=== PATIENT | female | born 1950 | race Caucasian/White ===

== ENCOUNTER → 2016-12-21 | Day surgery (SDC) | payer MEDICARE ==
--- NOTE | 2016-12-20 08:02 | MH ---
cc: RAN MYERS M.D. DATE OF ADMISSION: 12/21/2016 CHIEF COMPLAINT Dysphagia, odynophagia. HISTORY This is a 66-year-old female who presented with complaints of sore throat and had evidence of a base of tongue lesion. She shows an ulcerative mass in the midline base of tongue to the area of the epiglottis and vallecula. She is to undergo laryngoscopy and biopsy. PAST MEDICAL HISTORY 1. LATEX ALLERGY. 2. Previous DVT. 3. Acid reflux. 4. Previous CVA. PHYSICAL EXAMINATION GENERAL: A well-developed, well-nourished female in no apparent distress. HEENT: Normocephalic, atraumatic. Extraocular motions intact. External ear canals clear. The deborah, oral mucosa and oropharynx show no lesion. There is a lesion at the base of tongue with an ulcerative mass anterior to the epiglottis. There was no evidence of airway obstruction. CHEST: Clear to auscultation. HEART: Regular rate. ABDOMEN: Soft. EXTREMITIES: No lesion. NEUROLOGIC EXAM: Nonfocal. ASSESSMENT This is a 66-year-old female with history of base of tongue lesion. PLAN She is to undergo microlaryngoscopy and biopsy. The risks and benefits were discussed with the patient. The risks include but are not limited to those of anesthesia, bleeding, unfavorable scarring, bleeding, hematoma, abscess, airway obstruction, hoarseness, voice change. The patient states she has and accepts the risks of the procedure. MD MILAN Bartholomew/CHUCK /7:44 AM /7:54 AM
[~2016-12-21] VITALS: Ht 157.5 cm; Wt 49.4 kg
[~2016-12-21] MED LIST: BRIM0.2S4 EACH EYE; FLOR250C PO; INSULIN HUMAN REGULAR 1,000 UNITS/10 ML VIAL SQ PRN; LACTATED RINGER'S 1000 ML IV SCH; LEVO.05 PO; METO25TA3 PO; METOPROLOL TARTRATE 25 MG TAB PO PRN; MIDO5TAB PO; ONDANSETRON HCL 4 MG/2 ML VIAL IV PUSH ONE; PANT40TA3 PO; PHENYLEPH/NS 1000 MCG/10 ML SYR IV ONE; PRED10 PO; PRED1SUS EACH EYE; PROPOFOL 200 MG/20 ML AMP IV ONE; RANI300T PO; SODIUM CHLORID 0.9% 500 ML IV SCH
[2016-12-21 07:22] VITALS: BP 96/67; PULSE 78; RESP 20; TEMP 98; O2SAT 98
[2016-12-21 07:24] LABS: AUTOMATED NEUTROPHIL # 6.1 TH/MM3 (1.8-7.7); BASOPHIL % 0.4 % (0.0-2.0); EOSINOPHIL % 0.1 % (0.0-4.0); HEMATOCRIT 32.6 % (35.0-46.0); HEMO FLAGS DIFF FINAL; LYMPH % 8.3 % (9.0-44.0); LYMPHOCYTE # 0.6 TH/MM3 (1.0-4.8); MEAN CELL VOLUME 90.6 FL (80.0-100.0); MEAN CORPUSCULAR HEMOGLOBIN 30.9 PG (27.0-34.0); MEAN CORPUSCULAR HGB CONC 34.1 % (32.0-36.0); MONO % 8.7 % (0.0-8.0); NEUT % 82.5 % (16.0-70.0); PLATELET COUNT 253 TH/MM3 (150-450); RED CELL DISTRIBUTION WIDTH 14.8 % (11.6-17.2); WHITE BLOOD COUNT 7.3 TH/MM3 (4.0-11.0)
--- NOTE | 2016-12-21 09:28 | MP ---
cc: RAN MYERS M.D. DATE OF SURGERY: 12/21/2016 INDICATIONS This is a 66-year-old female who presented with dysphagia and odynophagia. She had a base of tongue lesion. She is to undergo microlaryngoscopy and biopsy. PREOPERATIVE DIAGNOSIS Hoarseness, dysphagia, odynophagia, base of tongue lesion. POSTOPERATIVE DIAGNOSIS Hoarseness, dysphagia, odynophagia, base of tongue lesion. PROCEDURE Microlaryngoscopy with biopsy. SUMMARY The patient was brought to the operating room and placed in supine position, successfully placed under general anesthesia and prepared in the usual fashion for this procedure. The patient was examined with magnification with laryngoscope. The lesion was identified as a broad-based lesion more central, anterior to the epiglottis at the base of tongue. Biopsy was taken with minimal bleeding. She tolerated this well and was awakened and taken to Recovery in stable condition. MD MILAN Bartholomew/PEDRO /9:07 AM /9:16 AM
[2016-12-21 10:29] VITALS: BP 94/71; PULSE 88; RESP 18; TEMP 98.1; O2SAT 95
--- NOTE | 2016-12-21 18:38 | EKG ---
Date Performed: 12/21/2016 Time Performed: 06:43:59 PTAGE: 66 years EKG: Sinus rhythm MARKED LEFT AXIS DEVIATION LOW QRS VOLTAGE IN PRECORDIAL LEADS RIGHT BUNDLE BRANCH BLOCK ABNORMAL EC G NO PREVIOUS TRACING DOCTOR: Dragan Wright Interpretating Date/Time 12/21/2016 18:36:19
== END | disposition home or self-care (01) ==
LOC: HSDC 06:16
PROVIDERS: ATTEND Specialist
DX: K14.9 Disease of tongue, unspecified (principal); R13.10 Dysphagia, unspecified; R49.0 Dysphonia; J02.9 Acute pharyngitis, unspecified; I10 Essential (primary) hypertension; R94.31 Abnormal electrocardiogram [ECG] [EKG]; K21.9 Gastro-esophageal reflux disease without esophagitis; Z86.718 Personal history of other venous thrombosis and embolism; Z86.73 Personal history of transient ischemic attack (TIA), and cerebral infarction without residual deficits
CPT/HCPCS: 00320; 31536; 85025; 88305; 88341; 88342; 93005; J2370; J2405; J3010; J7120

== ENCOUNTER 2017-01-06 06:41 | Day surgery (SDC) | payer MEDICARE ==
[2017-01-06] VITALS (7 sets, daily range): BP systolic 78–103; BP diastolic 51–72; PULSE 69–81; RESP 14–20; TEMP 97.5–98.1; O2SAT 90–97
[~2017-01-06 06:41] MED LIST changes: -INSULIN HUMAN REGULAR 1,000 UNITS/10 ML VIAL SQ PRN; -LACTATED RINGER'S 1000 ML IV SCH; -METOPROLOL TARTRATE 25 MG TAB PO PRN; -ONDANSETRON HCL 4 MG/2 ML VIAL IV PUSH ONE; -PHENYLEPH/NS 1000 MCG/10 ML SYR IV ONE; -PRED1SUS EACH EYE; -PROPOFOL 200 MG/20 ML AMP IV ONE; -SODIUM CHLORID 0.9% 500 ML IV SCH
[2017-01-06] MEDS ORDERED: SODIUM CHLORIDE 0.9% 1000 ML IV SCH (07:15)
[2017-01-06] MEDS ORDERED: ceFAZolin 2 GM PREMIX 50 ML - gastrostomy and jejunostomy initial insertion IV SCH (07:15)
[2017-01-06 07:43] LABS: AUTOMATED NEUTROPHIL # 4.9 TH/MM3 (1.8-7.7); BASOPHIL % 0.3 % (0.0-2.0); EOSINOPHIL % 0.1 % (0.0-4.0); HEMATOCRIT 32.8 % (35.0-46.0); HEMO FLAGS DIFF FINAL; LYMPH % 17.4 % (9.0-44.0); LYMPHOCYTE # 1.2 TH/MM3 (1.0-4.8); MEAN CELL VOLUME 91.1 FL (80.0-100.0); MEAN CORPUSCULAR HEMOGLOBIN 30.4 PG (27.0-34.0); MEAN CORPUSCULAR HGB CONC 33.4 % (32.0-36.0); MONO % 12.8 % (0.0-8.0); NEUT % 69.4 % (16.0-70.0); PLATELET COUNT 269 TH/MM3 (150-450); RED CELL DISTRIBUTION WIDTH 14.9 % (11.6-17.2)
[2017-01-06 07:46] LABS: APTT (PATIENT) 30.6 SEC (24.3-30.1); INTERNATIONAL NORMALIZED RATIO 1.2 RATIO; PROTHROMBIN TIME - PATIENT 13.3 SEC (9.8-11.6)
[2017-01-06] MEDS ORDERED: ePHEDrine/NS 25 MG/5 ML SYR ONE (07:57)
[2017-01-06] MEDS ORDERED: fentaNYL CITRATE 250 MCG/5 ML AMP ONE (07:57)
[2017-01-06] MEDS ORDERED: MIDAZOLAM HCL 5 MG/5 ML VIAL ONE (07:57)
[2017-01-06] MEDS ORDERED: GLUCAGON 1 MG/ML VIAL ONE (07:58)
--- NOTE | 2017-01-06 08:53 | PD.RAD ---
Post Procedure Progress Note Pre Procedure Diagnosis: (1) Oral cancer Post Procedure Diagnosis: (1) Oral cancer Procedure Date: Jan 06, 2017 Supervising Radiologist: Dennys Sheehan JR Proceduralist/Assist: Chelsea Ramirez RT(R), Prateek Peacock RT(R) Anesthesia: Conscious Sedation Plan of Activity Patient to Unit: ROPU Patient Condition: Good See PACS Report for procedural detail/treatment Feeding Tube Gastrostomy Placement Uzbek: 18 Findings: Placed G tube without difficulty. In good position Plan T fasteners will fall off on their own in approx 3 weeks Jr. Aguila,Dennys Leach MD Jan 06, 2017 08:53
[2017-01-06] MEDS ORDERED: IOHEXOL 350 MG/ML 50 ML BTL (for RAD DIAG) G-TUBE ONE (08:57)
--- NOTE | 2017-01-06 11:35 | RADRPT ---
EXAM DATE/TIME: 01/06/2017 08:16 [facility] COMPARISON: No previous studies available for comparison. INDICATIONS : Patient with tongue cancer in need of G-tube placement. MEDICAL HISTORY : Heart disease COPD Liver disease Arthritis PVD GERD Crohn's disease CVA 07/29 Hx Hypothyroidism SURGICAL HISTORY : Laparotomy D&C Tubal ligation Cataract surgery Appendectomy Laryngoscopy [facility] biopsy ENCOUNTER: Initial ACUITY: 1 month PAIN SCORE: 0/10 FLUORO TIME: 3.6 minutes SEDATION TIME: 30 minutes CONTRAST: 10 cc Omnipaque (iohexol) 350 MEDICATION(S): 1.) 1.5 mcg midazolam (Versed) IV 2.) 75 mg Fentanyl (Sublimaze) IV DEVICE(S): 1.) 18 Fr gastrostomy tube PROCEDURE : 1. Limited abdominal ultrasound. 2. Fluoroscopically guided gastrostomy tube placement. 3. Conscious sedation with continuous EKG and oximetry monitoring. The risks, benefits and alternatives to the procedure were explained and verbal and written consent w as obtained. The site was prepped in sterile fashion. Full sterile technique was used, including ca p, mask, sterile gloves and gown and a large sterile sheet. Hand hygiene and 2% chlorhexidine and/or betadine/alcohol prep was utilized per protocol for cutaneous antisepsis. The skin and subcutaneous tissues were infiltrated with local anesthetic solution. Ultrasound was used to vivian the position of the liver. The stomach was insufflated with room air. Th ree percutaneous fasteners were placed to secure the anterior gastric wall. A small incision was made between the fasteners. The stomach was accessed with an 18 gauge needle. A n 0.035 wire was advanced into the small bowel. The tract was dilated. The gastrostomy tube was int roduced through a peel-away sheath. The position was confirmed with an injection of contrast. Conscious sedation was performed with the prescribed dosages and duration as above. The patient marques ated the procedure well and there were no complications. EKG and oximetry remained stable throughout the procedure. The patient was sent to post anesthesia recovery in stable condition. CONCLUSION: Uncomplicated gastrostomy tube placement as above. Dennys Sheehan Jr., MD on January 06, 2017 at 11:33 Board Certified Radiologist. This report was verified electronically.
== END 2017-01-06 11:15 | disposition home or self-care (01) ==
LOC: HROP 06:41 → HRIP 06:44 → HROP 11:15
PROVIDERS: ATTEND Specialist
DX: C02.9 Malignant neoplasm of tongue, unspecified (principal); R13.10 Dysphagia, unspecified; K50.90 Crohn's disease, unspecified, without complications; K21.9 Gastro-esophageal reflux disease without esophagitis; R79.1 Abnormal coagulation profile; J44.9 Chronic obstructive pulmonary disease, unspecified; Z86.73 Personal history of transient ischemic attack (TIA), and cerebral infarction without residual deficits
CPT/HCPCS: 49440; 76942; 85025; 85610; 85730; 99152; 99153; C1769; C1887; J0690; J1610; J2250; J3010; J7030; Q9967

== ENCOUNTER 2017-04-13 07:51 | Day surgery (SDC) | payer MEDICARE ==
[~2017-04-13] VITALS: Ht 154.9 cm; Wt 44.5 kg
[2017-04-13 08:13] VITALS: BP 105/73; PULSE 96; RESP 16; TEMP 98.4; O2SAT 94
== END 2017-04-13 09:15 | disposition home or self-care (01) ==
LOC: HROP 07:51 → HRIP 07:56 → HROP 09:15
PROVIDERS: ATTEND Specialist
DX: Z43.4 Encounter for attention to other artificial openings of digestive tract (principal)
CPT/HCPCS: 99211; G0463

== ENCOUNTER 2017-04-14 11:29 | Day surgery (SDC) | payer MEDICARE ==
[~2017-04-14] VITALS: Ht 154.9 cm; Wt 42.7 kg
[2017-04-14 11:50] VITALS: BP 112/69; PULSE 75; RESP 18; TEMP 98.3; O2SAT 97
== END 2017-04-14 12:55 | disposition home or self-care (01) ==
LOC: HRIP 11:29 → HROP 11:29
PROVIDERS: ATTEND Radiology Radiation Oncology
DX: Z43.1 Encounter for attention to gastrostomy (principal); C01 Malignant neoplasm of base of tongue; I10 Essential (primary) hypertension; E03.9 Hypothyroidism, unspecified; K21.9 Gastro-esophageal reflux disease without esophagitis; J44.9 Chronic obstructive pulmonary disease, unspecified; M19.90 Unspecified osteoarthritis, unspecified site; I73.9 Peripheral vascular disease, unspecified; Z86.73 Personal history of transient ischemic attack (TIA), and cerebral infarction without residual deficits
CPT/HCPCS: 99211; G0463

== ENCOUNTER 2017-09-02 11:50 | Emergency (ER) | payer MEDICARE ==
[~2017-09-02] VITALS: Ht 154.9 cm; Wt 45.0 kg
[2017-09-02 11:52] VITALS: BP 109/64; PULSE 106; RESP 24; TEMP 98.9; O2SAT 95
--- NOTE | 2017-09-02 13:15 | PD ---
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 Patient has a feeding tube secondary to cancer to the throat. Patient has had radiation and has inability to swallow because of this. She gets feeding tubes consistently through the feeding tube. She had a revision on Monday by Dr. Gunter e commerce developer in [facility]. She gives following with him for care but unfortunately his out of town. He decided to come here because patient had the initial tube placed by Dr. Sheehan from IR here. Per family they're concerned because patient is having leakage from the sides of the tube as well as some of the feedings appear to be coming back. She has no more pain. No fevers chills or sweats. No other discomfort. She is able to get the feeling on the tube but per patient some of it seems to be coming back. No other medical issues. No chest pain or shortness of breath. Multiple allergies to different medications. Symptoms ongoing since yesterday. Patient has minimal pain and is 2 out of 10 with movement of the 2. Otherwise unremarkable. PFSH Past Medical History Cancer: No Cardiovascular Problems: Yes (pvd) Chemotherapy: Yes Cerebrovascular Accident: Yes Diabetes: No Endocrine: No Gastrointestinal Disorders: Yes (g tube, gerd, crohns) Glaucoma: No Genitourinary: No Hepatitis: No Hiatal Hernia: No Hypertension: Yes Immune Disorder: No Musculoskeletal: Yes (arthritis) Neurologic: Yes (stroke) Psychiatric: No Reproductive: No Respiratory: Yes (copd) Immunizations Current: Yes Thyroid Disease: Yes Past Surgical History Abdominal Surgery: Yes (g tube insertion) AICD: No Cardiac Surgery: No Ear Surgery: No Endocrine Surgery: No Eye Surgery: Yes (cataracts) Genitourinary Surgery: No Gynecologic Surgery: Yes (tubal ligation) Joint Replacement: No Oral Surgery: No Pacemaker: No Thoracic Surgery: No Other Surgery: Yes Social History Alcohol Use: Yes (DAILY-WINE ) Tobacco Use: No Substance Use: No Allergies-Medications (Allergen,Severity, Reaction): Coded Allergies: latex (Unverified Allergy, Severe, Rash, 06/27/17) fluticasone (Unverified Allergy, Unknown, 06/27/17) fluticasone furoate (Unverified Allergy, Unknown, 06/27/17) methylprednisolone (Unverified Allergy, Unknown, 06/27/17) salmeterol (Unverified Allergy, Unknown, 06/27/17) Reported Meds & Prescriptions Reported Meds & Active Scripts Active Reported Brimonidine Opth Drops (Brimonidine Tartrate) 0.2% Soln 1 Drop EACH EYE BID Florastor (Saccharomyces Boulardii) 250 Mg Cap 250 Mg PO BID Pantoprazole (Pantoprazole Sodium) 40 Mg Tab 40 Mg PO DAILY Metoprolol Tartrate 25 Mg Tab 25 Mg PO BID Ranitidine (Ranitidine HCl) 300 Mg Tab 300 Mg PO DAILY Midodrine 5 Mg Tab 5 Mg PO TID Synthroid (Levothyroxine Sodium) 50 Mcg Tab 50 Mcg PO DAILY Prednisone 10 Mg Tab 10 Mg PO DAILY Review of Systems Except as stated in HPI: all other systems reviewed are Neg Physical Exam Narrative GENERAL: SKIN: Warm and dry. HEAD: Atraumatic. Normocephalic. EYES: Pupils equal and round. No scleral icterus. No injection or drainage. ENT: No nasal bleeding or discharge. Mucous membranes pink and moist. Tongue is midline. No uvula deviation. NECK: Trachea midline. No JVD. CARDIOVASCULAR: Regular rate and rhythm. No murmurs, S3, S4. RESPIRATORY: No accessory muscle use. Clear to auscultation. Breath sounds equal bilaterally. GASTROINTESTINAL: Abdomen soft, non-tender, nondistended. Hepatic and splenic margins not palpable. Patient has a tube in place on the epigastric area. Some leakage noted around the area of the tube. Irritation noted on the skin surrounding the tube. Otherwise no sign of acute disease. Tube appears to be working. MUSCULOSKELETAL: Extremities without clubbing, cyanosis, or edema. No obvious deformities. Full range of motion of the upper and lower extremities bilaterally. 2+ pulses bilaterally. NEUROLOGICAL: Awake and alert. No obvious cranial nerve deficits. Motor grossly within normal limits. Five out of 5 muscle strength in the arms and legs. Normal speech. PSYCHIATRIC: Appropriate mood and affect; insight and judgment normal. Data Data Last Documented VS Vital Signs Date Time Temp Pulse Resp B/P (MAP) Pulse Ox O2 Delivery O2 Flow Rate FiO2 09/02/17 11:52 98.9 106 24 109/64 (79 95 Orders Orders Abdomen, Single View (09/02/17 ) Ed Discharge Order (09/02/17 13:16) MDM Medical Decision Making Medical Screen Exam Complete: Yes Emergency Medical Condition: Yes Medical Record Reviewed: Yes Interpretation(s) X-ray of the abdomen did not show any sign of obstruction. Differential Diagnosis G tube displacement versus obstruction versus normal exam Narrative Course 66-year-old female that presents to the ED for evaluation of PEG tube malfunction. Patient was properly examined and was found to have signs and symptoms consistent with appears to be feeding tube leakage. No sign of acute distress. Imaging was ordered and showed no sign of obstruction. Case was discussed with Dr. Sheehan from radiology who actually was the one who put the tube in the first place and came here and evaluated the patient and agrees with plan. He was able to fix it by bedside manipulation with improvement of symptoms. Patient did well. She was told as to how to be able to fix her to on her own. She was told to follow with her doctor. Continue feedings as needed. See ED worsening symptoms. Diagnosis Primary Impression: Feeding tube dysfunction Qualified Codes: T85.598A - Other mechanical complication of other gastrointestinal prosthetic devices, implants and grafts, initial encounter Patient Instructions: General Instructions Additional Instructions: Follow-up with your doctor. See ED for any worsening symptoms. Med/Other Pt SpecificInfo: No Change to Meds Disposition: 01 DISCHARGE HOME Condition: Stable Berny Osman Sep 02, 2017 13:15
--- NOTE | 2017-09-02 13:15 | RADRPT ---
EXAM DATE/TIME: 09/02/2017 12:26 [facility] COMPARISON: No previous studies available for comparison. INDICATIONS : Check postioning of feeding tube MEDICAL HISTORY : Hypothyroidism. Heart disease,COPD,Liver disease,Arthritis,PVD,GERD,Crohn's disease,cva 07/29 SURGICAL HISTORY : Laparotomy,D&C,Tubal ligation,Cataract surgery,Appendectomy,,Laryngoscopy wih biopsy ENCOUNTER: Initial ACUITY: 1 day PAIN SCORE: 0/10 LOCATION: Bilateral abdomen FINDINGS: Examination of the abdomen demonstrates a normal bowel gas pattern. Contrast is seen opacifying the s tomach and duodenal C-loop. The G-tube is in good position. No free air is identified. No organomega ly is evident. Osseous structures are intact. CONCLUSION: No evidence of obstruction. G-tube in good position. Dennys Sheehan Jr., MD on September 02, 2017 at 12:56 Board Certified Radiologist. This report was verified electronically.
== END 2017-09-02 13:38 | disposition home or self-care (01) ==
LOC: NEPC 11:50
DX: T85.598A Other mechanical complication of other gastrointestinal prosthetic devices, implants and grafts, initial encounter (principal)
CPT/HCPCS: 74000; 99283